=== PATIENT | male | born 1970 | race Caucasian/White ===

== ENCOUNTER 2020-11-05 19:38 | Emergency (ER) | payer BC ==
[~2020-11-05] VITALS: Ht 182.9 cm; Wt 97.5 kg
[2020-11-05 20:17] VITALS: BP 137/70
== END 2020-11-05 20:45 | disposition home or self-care (01) ==
LOC: ER 19:42
DX: S01.81XA Laceration without foreign body of other part of head, initial encounter (principal); W22.8XXA Striking against or struck by other objects, initial encounter; Y93.89 Activity, other specified; Y92.89 Other specified places as the place of occurrence of the external cause; Y99.8 Other external cause status